=== PATIENT | male | born 1960 | race Two or more races ===

== ENCOUNTER 2023-04-13 10:18 | Inpatient (IN) | payer OTHER ==
[~2023-04-13] VITALS: Ht 152.4 cm; Wt 83.9 kg
[2023-04-13] MEDS ORDERED: VASOTEC5 MG PO (10:51)
[2023-04-17] MEDS ORDERED: ENALAPRIL MALEA10 MG (10:55)
[2023-04-17] MEDS ORDERED: DOXAZOSIN MESYLA2 MG (10:55)
[2023-04-17] MEDS ORDERED: MECLIZINE HCL25 MG (10:55)
[2023-04-26] MEDS ORDERED: TOPROL XL50 M1 PO (09:52)
[2023-04-26] MEDS ORDERED: ZOLPIDEM TARTRA10 MG PO (09:52)
[2023-04-26] MEDS ORDERED: VASOTEC10 MG PO (09:52)
[2023-04-26] MEDS ORDERED: zyvox PO (09:52)
[2023-04-26] MEDS ORDERED: AMLODIPINE BESYL5 MG PO (09:52)
== END 2023-04-26 14:22 | disposition home or self-care (01) | DRG 560 ==
LOC: ER 10:18 → MEDI 17:23
PROVIDERS: Orthopaedic Surgery; ADMIT Internal Medicine; ATTEND Internal Medicine
PROC: BQ3DYZZ Magnetic Resonance Imaging (MRI) of Right Lower Leg using Other Contrast (ICD-10-PCS; 2023-04-13)
PROC: 3E1U38Z Irrigation of Joints using Irrigating Substance, Percutaneous Approach (ICD-10-PCS; principal; 2023-04-18 14:15)
PROC: B24BZZZ Ultrasonography of Heart with Aorta (ICD-10-PCS; 2023-04-22)
DX: T84.53XA Infection and inflammatory reaction due to internal right knee prosthesis, initial encounter (principal); M00.061 Staphylococcal arthritis, right knee; I10 Essential (primary) hypertension; Z20.822 Contact with and (suspected) exposure to COVID-19
CPT/HCPCS: 73722